=== PATIENT | male | born 2000 | race African-American/Black ===

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

== ENCOUNTER 2019-05-27 17:57 | Emergency (ER) | payer OTHER ==
[~2019-05-27] VITALS: Ht 175.3 cm; Wt 99.8 kg
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
[~2019-05-27 17:57] MED LIST changes: +CLOTRIMAZOLE 1%15 G1 TOP; +KEFLEX500 M1 PO
[2019-05-27 18:19] LABS: ABSOLUTE NEUTROPHILS 2.3 thou/uL (1.4-8.2); BASOPHILS 1.4 % (0.0-2.0); EOSINOPHILS 5.6 % (0.0-3.0); HEMATOCRIT 43.6 % (42.0-52.0); LYMPHOCYTES 36.8 % (24.0-44.0); MCV 90.6 fL (80.0-100.0); MONOCYTES 8.8 % (1.0-8.0); PLATELET COUNT 197 thou/uL (150-400); POLYS 47.4 % (36.0-66.0); RBC 4.81 mil/uL (4.50-6.00); WBC 4.9 thou/uL (4.0-11.0)
[2019-05-27 18:33] LABS: CALCIUM 9.3 mg/dL (8.5-10.1); CREATININE 1.1 mg/dL (0.7-1.3); POTASSIUM 3.9 mmol/L (3.5-5.1)
[2019-05-27 18:40] LABS: ALBUMIN 4.2 g/dL (3.4-5.0); TOTAL BILIRUBIN 0.8 mg/dL (<0.1-1.0); TOTAL PROTEIN 7.9 g/dL (6.4-8.2)
[2019-05-27] MEDS ORDERED: FLAGYL500 M1 PO (20:00)
[2019-05-27] MEDS ORDERED: NAPROSYN500 MG PO (20:00)
[2019-05-27] MEDS ORDERED: CYCLOBENZAPRINE5 MG PO (20:00)
[2019-05-27 20:31] VITALS: BP 136/86
== END 2019-05-27 20:25 | disposition home or self-care (01) ==
LOC: ER 17:57
PROVIDERS: Physician Assistant
DX: A59.9 Trichomoniasis, unspecified (principal); M54.5 Low back pain; M54.2 Cervicalgia; J45.909 Unspecified asthma, uncomplicated; F17.210 Nicotine dependence, cigarettes, uncomplicated; V89.2XXA Person injured in unspecified motor-vehicle accident, traffic, initial encounter; Y93.89 Activity, other specified; Y92.89 Other specified places as the place of occurrence of the external cause; Y99.8 Other external cause status

== ENCOUNTER 2019-12-07 12:34 | Emergency (ER) | payer OTHER ==
[~2019-12-07] VITALS: Ht 175.3 cm; Wt 106.6 kg
[~2019-12-07 12:34] MED LIST changes: +CYCLOBENZAPRINE5 MG PO; +FLAGYL500 M1 PO; +NAPROSYN500 MG PO
[2019-12-07 13:05] LABS: ANION GAP 4 mmol/L (7-16); BUN 13 mg/dL (7-18); CALCIUM 9.2 mg/dL (8.5-10.1); CHLORIDE 103 mmol/L (98-107); CO2 31 mmol/L (21-32); CREATININE 1.3 mg/dL (0.7-1.3); GLUCOSE 80 mg/dL (74-106); POTASSIUM 3.9 mmol/L (3.5-5.1); SODIUM 138 mmol/L (136-145)
[2019-12-07 13:07] LABS: HEMATOCRIT 43.6 % (42.0-52.0); HEMOGLOBIN 13.8 gm/dL (14.0-18.0); MCHC 31.7 g/dL (28.0-37.0); MCV 91.5 fL (80.0-100.0); RBC 4.76 mil/uL (4.50-6.00); RDW 12.2 % (10.5-14.5); WBC 4.5 thou/uL (4.0-11.0)
[2019-12-07 13:13] LABS: TROPONIN-I <0.06 ng/mL (<0.06)
[2019-12-07 14:01] VITALS: BP 118/72
--- NOTE | 2019-12-07 15:50 | EKG ---
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: [facility] : 2000 Requested By: Kei Pop Order Number: [id number] : Varghese Strong Measurements Intervals [place] Rate: 65 P: 37 ND: 155 QRS: 90 QRSD: 95 T: 65 QT: 379 QTc: 394 Interpretive Statements Sinus arrhythmia Borderline right axis deviation Borderline Q waves in inferior leads J Point elev, probable normal early repol pattern No previous ECG available for comparison Electronically Signed On 12-07-2019 15:50:28 CDT by Varghese Strong [email or web address] <ELECTRONICALLY SIGNED> By: Varghese Strong MD, FACC 12/07/19 1550 1239 [id number] Varghese Strong MD, FACC /EPI
== END 2019-12-07 14:02 | disposition home or self-care (01) ==
LOC: ER 12:34
PROVIDERS: Emergency Medicine
DX: R07.89 Other chest pain (principal); F17.210 Nicotine dependence, cigarettes, uncomplicated; J45.909 Unspecified asthma, uncomplicated

== ENCOUNTER 2020-01-17 09:28 | Emergency (ER) | payer OTHER ==
[~2020-01-17] VITALS: Ht 177.8 cm; Wt 104.3 kg
[2020-01-17 10:00] VITALS: BP 149/82
[2020-01-17 10:35] LABS: URINE BLOOD NEGATIVE (Negative); URINE CLARITY CLEAR; URINE COLOR YELLOW; URINE GLUCOSE-RANDOM* NEGATIVE (Negative); URINE KETONES NEGATIVE (Negative); URINE LEUKOCYTES-REFLEX NEGATIVE (Negative); URINE NITRITE-REFLEX NEGATIVE (Negative); URINE PROTEIN (DIPSTICK) NEGATIVE (Negative); URINE SPECIFIC GRAVITY >= 1.030 (1.005-1.035)
[2020-01-17 10:37] LABS: ICTOTEST (BILI CONFIRMATORY) Negative (Negative); URINE BILIRUBIN NEGATIVE (Negative)
[2020-01-17 10:43] LABS: AMP/METHAMP Negative (Negative); BARBITURATES Negative (Negative); BENZODIAZEPINES Negative (Negative); COCAINE Negative (Negative); METHADONE Negative (Negative); OPIATES Negative (Negative); PCP Negative (Negative)
[2020-01-17 10:43] LABS: ABSOLUTE NEUTROPHILS 2.7 thou/uL (1.4-8.2); BASOPHILS 0.9 % (0.0-2.0); EOSINOPHILS 3.1 % (0.0-3.0); HEMATOCRIT 43.9 % (42.0-52.0); MCH 29.1 pg (26.0-34.0); MCHC 31.9 g/dL (28.0-37.0); MCV 91.1 fL (80.0-100.0); MONOCYTES 8.5 % (1.0-8.0); PLATELET COUNT 228 thou/uL (150-400); POLYS 58.5 % (36.0-66.0); RBC 4.82 mil/uL (4.50-6.00); RDW 12.2 % (10.5-14.5); WBC 4.6 thou/uL (4.0-11.0)
[2020-01-17 11:07] LABS: ANION GAP 8 mmol/L (7-16); BUN 12 mg/dL (7-18); CALCIUM 9.4 mg/dL (8.5-10.1); CHLORIDE 102 mmol/L (98-107); CO2 27 mmol/L (21-32); CREATININE 1.2 mg/dL (0.7-1.3); GLUCOSE 92 mg/dL (74-106); POTASSIUM 3.7 mmol/L (3.5-5.1); SODIUM 137 mmol/L (136-145)
[2020-01-17 11:12] LABS: ALBUMIN 4.2 g/dL (3.4-5.0); SGOT 18 U/L (15-37); SGPT 37 U/L (30-65); TOTAL BILIRUBIN 1.4 mg/dL (0.2-1.0); TOTAL PROTEIN 8.2 g/dL (6.4-8.2)
[2020-01-17 11:14] LABS: SALICYLATE < 2.8 mg/dL (2.8-20.0)
--- NOTE | 2020-01-18 07:09 | EKG ---
[facility] [place] [address] [place] [address] ELECTROCARDIOGRAM REPORT Name: ERIC BRODY Room #: DEP [facility]#: [id number] Admission: 01/17/20 Attend Phys: Discharge: 01/17/20 Date of : [birth year] Report #: [id number] THIS REPORT FOR: cc: GRISEL Clayton family physician/PCP GRISEL - Matilde family physician/PCP Varghese Strong MD [facility] ~ THIS REPORT FOR: //name// 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: : 2000 Requested By: Skinny Hernandez Order Number: [id number] MD: Varghese Strong Measurements Intervals [place] Rate: 66 P: 22 TN: 160 QRS: 85 QRSD: 94 T: 52 QT: 397 QTc: 416 Interpretive Statements Sinus rhythm Borderline Q waves in inferior leads ST elev, probable normal early repol pattern Compared to ECG 12/07/2019 12:39:05 ST (T wave) deviation now present Sinus arrhythmia no longer present Electronically Signed On 01-18-2020 7:08:56 SECURITY TEAM LEAD by Varghese Strong [email or web address] <ELECTRONICALLY SIGNED> By: Varghese Strong MD, FACC 01/18/20 0708 1308 1308 Varghese Strong MD, [facility] /EPI
== END 2020-01-17 19:10 ==
LOC: ER 09:28
PROVIDERS: Emergency Medicine
DX: R45.851 Suicidal ideations (principal); J45.909 Unspecified asthma, uncomplicated; F17.210 Nicotine dependence, cigarettes, uncomplicated; Z20.828 Contact with and (suspected) exposure to other viral communicable diseases